=== PATIENT | male | born 1950 | race Caucasian/White ===

== ENCOUNTER 2017-05-03 06:03 | Day surgery (SDC) | payer MEDICARE, OTHER ==
[~2017-05-03] VITALS: Ht 162.6 cm; Wt 81.6 kg
[~2017-05-03 06:03] MED LIST: DIOVAN160 MG PO; GLUCOPHAGE1000 MG PO; GLUCOTROL 5 MG T5 MG PO
[2017-05-03 06:35] LABS: HEMATOCRIT 43.6 % (42.0-54.0); HEMOGLOBIN 15.5 g/dL (13.5-17.5); MCH 30.8 pg (26.0-34.0); MCHC 35.6 g/dL (31.0-37.0); MCV 86.7 fL (80.0-100.0); MEAN PLATELET VOLUME 9.8 fL (7.4-10.4); RBC 5.03 10x6/uL (4.20-6.10); RDW 12.6 % (11.5-14.5); WBC 7.8 10x3/uL (4.8-10.8)
[2017-05-03 06:59] LABS: ANION GAP 14.9 mmol/L (8-16); CALCIUM 8.8 mg/dL (8.5-10.1); CARBON DIOXIDE 23.9 mmol/L (21.0-32.0); CREATININE - SERUM 1.1 mg/dL (0.6-1.3); POTASSIUM - SERUM 3.8 mmol/L (3.5-5.1)
[2017-05-03 07:00] VITALS: BP 129/75; Ht 162.6 cm; Wt 81.6 kg
--- NOTE | 2017-05-09 15:43 | HP ---
PATIENT: JUAREZ RINCON MEDICAL RECORD: [id number] ACCOUNT: [id number] LOCATION:[facility] : 50 ADMISSION DATE: 05/03/17 HISTORY AND PHYSICAL EXAMINATION CHIEF COMPLAINT: Polyps. HISTORY OF PRESENT ILLNESS: The patient underwent polypectomies utilizing argon plasma sheep boner on 04/20/2016. He is now here for surveillance colonoscopy. The patient has a complex polyp, which has higher chance of regrowth and for that reason, the patient is undergoing surveillance colonoscopy about a year after this last colonoscopy. During his last endoscopy, I identified an ileocecal valve polyp. I noted the tattooed polyp at the proximal transverse colon. I was unable to identify a hepatic flexure polyp. The ileocecal valve polyp was consistent with mixed fragments of adenomatous and hyperplastic polyp. The transverse colon polyp was adenomatous polyp with focal low-grade atypia, dysplasia. The risks, possible complications and alternatives to procedure were explained to the patient. He elects to proceed. ALLERGIES: No known drug allergies. HOME MEDICINES: Losartan, glipizide as well as metformin. PAST MEDICAL AND SURGICAL HISTORY: Hypertension, diabetes, history of complex colon polyps. REVIEW OF SYSTEMS: Negative for CVA or seizures. Negative for renal disease or hepatitis. PHYSICAL EXAMINATION: GENERAL: The patient does not appear acutely ill. He does not appear chronically ill. VITAL SIGNS: Reviewed. EARS: External ears appear normal. EYES: Extraocular movements are intact. NECK: Trachea is midline. CHEST: No intercostal retractions. PULMONARY: Nonlabored, no stridor. ABDOMEN: Nontender. IMPRESSION: Complex colon polyps. PLAN: Colonoscopy with argon plasma sheep boner. TRANSINT:[id number] Voice Confirmation ID: [id number] DOCUMENT ID: [id number] HISTORY AND PHYSICAL [id number] RINCON,RENATO OCONNELL MD at 1543 CC: ISABEL MACHADO MD and JOAQUIN LEVY MD [id number] DICTATION DATE: 05/03/17 1029 COMPUTER REPAIR TECHNICIAN: 05/03/17 1053 [facility] 05/03/17 [place] [address]
--- NOTE | 2017-05-09 15:43 | OP ---
PATIENT NAME: JUAREZ RINCON MEDICAL RECORD: [id number] :50 LOCATION:D.OPS ADMISSION DATE: SURGEON: RENATO FONTANEZ MD DATE OF OPERATION: 05/03/2017 PREOPERATIVE DIAGNOSIS: History of complex colon polyps. POSTOPERATIVE DIAGNOSES: 1. History of complex colon polyps with regrowth of the ileocecal valve polyp as well as the tattooed polyp in the transverse colon where there had been significant regrowth. 2. Possible new polyp on the inferior lip of the ileocecal valve. PROCEDURES: 1. Total colonoscopy to cecum. 2. Hot biopsy forceps polypectomy times 1. 3. Polypectomies times 2 utilizing the argon plasma treasury associate. SURGEON: Renato Fontanez MD SCHEDULING MANAGER: None. BLOOD LOSS: Minimal. ANESTHESIA: General. COMPLICATIONS: None. The risks, possible complications and alternatives to procedure were explained to the patient. He elects to proceed. OPERATIVE COURSE: The patient was conveyed to the operating room electively on 05/03/2017. General anesthesia was induced by the anesthesia staff. The patient was placed in the Topete position. A digital rectal examination was performed. A colonoscope was inserted through the anus. It was easily advanced to the cecum. The prep was adequate. Upon withdrawal, I irrigated and aspirated extensively. I dragged the folds. A combination of direct imaging as well as narrow band imaging were utilized. Utilizing narrow band imaging was best to see the ileocecal valve polyp which was small and likely represents regrowth of the ileocecal valve polyp that was removed last year. This was removed utilizing the hot biopsy forceps polypectomy technique. There was another questionable polyp involving the inferior lip of the ileocecal valve. Cold endoscopic biopsies were performed and then I ablated the remaining polypoid tissue utilizing the argon plasma treasury associate with the right colon setting in the forced mode. I then slowly withdrew the endoscope. I noted the tattooed area and there was regrowth of polyp on this fold. This was cold biopsied. I then ablated any additional polypoid tissue utilizing the argon plasma treasury associate with the right colon setting in the forced mode. A retroflexed view was obtained in the rectum. I then unretroflexed the scope and removed it under direct vision. OPERATIVE REPORT [id number] JUAREZ RINCON I will see the patient in my office in 2-3 weeks. I will plan for his next colonoscopy with the argon plasma treasury associate to take place in 1 year. TRANSINT:[id number] Voice Confirmation ID: [id number] DOCUMENT ID: [id number] RENATO FONTANEZ MD at 1543 CC: ISABEL MACHADO MD and JOAQUIN LEVY MD [id number] DICTATION DATE: 05/03/17 1039 CULINARY SPECIALIST: 05/03/17 1054 [facility] 05/03/[address] [address]
== END 2017-05-03 12:40 | disposition home or self-care (01) ==
LOC: D.OPS 06:03 → D.PAN 09:00 → D.OPS 09:00 → D.PAN 10:50 → D.OPS 10:50
PROVIDERS: Anesthesiology
DX: K63.5 Polyp of colon (principal); F17.200 Nicotine dependence, unspecified, uncomplicated; I10 Essential (primary) hypertension; E11.9 Type 2 diabetes mellitus without complications; Z01.812 Encounter for preprocedural laboratory examination

== ENCOUNTER 2018-05-15 11:05 | Day surgery (SDC) | payer MEDICARE, OTHER ==
[~2018-05-15] VITALS: Ht 162.6 cm; Wt 81.8 kg
--- NOTE | ~2018-05-15 | HP ---
PATIENT: JUAREZ RINCON MEDICAL RECORD: [id number] ACCOUNT: [id number] LOCATION:[facility] : 50 ADMISSION DATE: 05/15/18 PCP: JOAQUIN LEVY MD HISTORY AND PHYSICAL EXAMINATION CHIEF COMPLAINT: Here for surveillance colonoscopy with argon plasma coil strapper. This is to be done in the GI lab. ALLERGIES: No known drug allergies. HOME MEDICATIONS: Please see the nursing list. SOCIAL HISTORY: Former smoker. PAST MEDICAL AND SURGICAL HISTORY: Hypertension, noninsulin-dependent diabetes, wisdom teeth extractions, and history of colon polyps. PHYSICAL EXAMINATION: GENERAL: The patient does not appear acutely ill. He does not appear chronically ill. VITAL SIGNS: Reviewed. EARS: External ears appear normal. EYES: Extraocular movements are intact. NECK: Trachea is midline. CHEST: No intercostal retractions. PULMONARY: Nonlabored. No stridor. IMPRESSION: History of complex colon polyps, one on the ileocecal valve and one at 75 cm, which has been tattooed. PLAN: Colonoscopy and polypectomy with argon plasma coil strapper versus endoscopic mucosal resection. TRANSINT:[id number] Voice Confirmation ID: [id number] DOCUMENT ID: [id number] RENATO FONTANEZ MD at 1909 CC: [id number] DICTATION DATE: 05/15/18 1505 SWITCHBOX ASSEMBLER: 05/15/18 1519 [facility] 05/15/18 [facility] [address] [place] [address]
--- NOTE | ~2018-05-15 | OP ---
PATIENT NAME: JUAREZ RINCON MEDICAL RECORD: [id number] :50 LOCATION:D.OPS ADMISSION DATE: SURGEON: RENATO FONTANEZ MD DATE OF OPERATION: 05/15/2018 PREOPERATIVE DIAGNOSIS: History of colon polyps. POSTOPERATIVE DIAGNOSES: 1. History of colon polyps with a polyp that appears to be present within the appendiceal lumen. 2. Questionable polyp of the ileocecal valve. 3. Sessile 6 mm polyp. 4. Some regrowth of the polyp that has been tattooed. PROCEDURES: 1. Total colonoscopy to cecum. 2. Polypectomy utilizing argon plasma supervisor train operations. 3. Hot biopsy forceps polypectomy. 4. Cold endoscopic biopsies of the ileocecal valve as well as the appendiceal lumen structure, which appears to be an adenomatous polyp. 5. Placement of 2 endoscopic clips for hemostasis. SURGEON: Renato Fontanez MD MAINTENANCE AND REPAIR WORKER: None. BLOOD LOSS: 25 cc. ANESTHESIA: IV sedation. COMPLICATIONS: None. ENDOSCOPIC COURSE: The patient was conveyed to the endoscopy suite electively on 05/15/2018. IV sedation was induced by the anesthesia staff. The patient was placed in the Topete position. Digital rectal examination was performed. A colonoscope was inserted through the anus. It was easily advanced to the cecum. The pullback was greater than 18-minute pullback. There was 1 polyp that I performed a hot biopsy forceps polypectomy on and there was some bleeding afterwards, which required the placement of 2 endoscopic clips for hemostasis. I biopsied the appendiceal lumen structure, which appeared to be a polyp. This was a cold endoscopic biopsy. I also biopsied the top of the ileocecal valve as there was scarring present in order to ensure that there had not been regrowth of a polyp. I then slowly withdrew the endoscope. I visualized the tattoo. On a fold approximately 1/3 of the circumference of the lumen of the bowel, there appeared to have been a carpeting type polyp, which was about 2.5 cm in length. I advanced a sclerotherapy needle. A submucosal injection of Eleview was performed. Then, I performed cold endoscopic biopsies of the polyp and I removed as much of the polyp that I could identify. I then ablated the polypoid base with the argon plasma supervisor train operations utilizing the right colon setting in the forced mode. I continued to withdraw the endoscope. The prep was adequate. A retroflexed view was obtained in the rectum. I then unretroflexed the scope and removed it OPERATIVE REPORT [id number] JUAREZ RINCON under direct vision. I will plan to see the patient in my office in 2-3 weeks to discuss our options. If indeed the patient does have an adenomatous polyp within the appendix, the patient will likely benefit from an appendectomy. Otherwise, I am going to recommend another colonoscopy with the argon plasma supervisor train operations, in the GI lab, in 1 year. TRANSINT:[id number] Voice Confirmation ID: [id number] DOCUMENT ID: [id number] RENATO FONTANEZ MD at 1456 CC: ISABEL MACHADO MD and JOAQUIN LEVY MD [id number] DICTATION DATE: 05/15/181913 POWER PLANT OPERATOR: 05/16/18 0005 [facility] 05/15/18 [facility] [address] [place] [address]
[2018-05-15 11:23] LABS: HEMOGLOBIN 15.2 g/dL (13.5-17.5); MCH 30.3 pg (26.0-34.0); MCHC 35.3 g/dL (31.0-37.0); MCV 85.8 fL (80.0-100.0); MEAN PLATELET VOLUME 10.1 fL (7.4-10.4); RBC 5.01 10x6/uL (4.20-6.10); RDW 12.5 % (11.5-14.5); WBC 6.1 10x3/uL (4.8-10.8)
[2018-05-15 11:31] LABS: CALC OSMOLALITY 280 mosm/kg (275-300); CALCIUM 8.4 mg/dL (8.5-10.1); CARBON DIOXIDE 28.7 mmol/L (21.0-32.0); CHLORIDE - SERUM 101 mmol/L (98-107); GLUCOSE 190 mg/dL (74-106); POTASSIUM - SERUM 4.3 mmol/L (3.5-5.1); SODIUM 138 mmol/L (136-145); UREA NITROGEN 13 mg/dL (7-18); eGFR NON AFRICAN AMERICAN 79 mL/min (90-120)
[2018-05-15 13:25] VITALS: Ht 162.6 cm; Wt 81.8 kg
== END 2018-05-15 17:30 | disposition home or self-care (01) ==
LOC: D.OPS 11:05
PROVIDERS: Anesthesiology
DX: D12.0 Benign neoplasm of cecum (principal); D12.4 Benign neoplasm of descending colon; Z86.010 Personal history of colon polyps; I10 Essential (primary) hypertension; E11.9 Type 2 diabetes mellitus without complications; Z87.891 Personal history of nicotine dependence; Z01.812 Encounter for preprocedural laboratory examination